=== PATIENT | female | born 1950 | race Caucasian/White ===

== ENCOUNTER → 2017-01-27 | Outpatient (CLI) | payer OTHER ==
[~2017-01-27] MED LIST: 50+ COMPANION0.4 MG PO; ACCUPRIL10 MG PO; ACCUPRIL40 MG PO; ALBUTEROL SULF8.5 GM IH; ALLERGY RELIEF25 MG PO; ASPIR-TRIN325 M1 PO; ASPIRIN E.C.81 M1 PO; B12 PO; BENZONATATE200 MG PO; BIOTIN1000 MICRO PO; BODY PO; BUDEPRION SR150 MG PO; CLARITIN D PO; CLOPIDOGREL75 MG PO; Cipro PO; Combivent IH; DAILY VALUE1 EACH PO; FLEXERIL10 MG PO; GLIPIZIDE XL10 M1 PO; GLUCOTROL XL10 MG PO; Glucotrol PO; HAIR PO; IMDUR30 MG PO; IMDUR60 MG PO; KEFLEX500 MG PO; KEPPRA500 MG PO; KEPPRA750 MG PO; LEVETIRACETAM750 MG PO; LISINOPRIL10 MG PO; LOPRESSOR25 MG PO; LORTAB 5-500 T1 EACH PO; MELATONIN1 MG PO; METOPROLOL SUCC25 MG PO; METOPROLOL TART25 MG PO; NAPROXEN500 MG PO; NEURONTIN300 MG PO; NEURONTIN600 MG PO; NEXIUM40 MG PO; NITROSTAT0.4 MG SL; NOVOLIN N100 UNITS/ SC; Nitrostat,NitroQuick SL; OMEPRAZOLE20 MG PO; PEN-VEE K,VEET500 MG PO; PERCOCET 5/31 TABLET PO; PLAVIX75 MG PO; PRAVASTATIN SOD40 MG PO; PRILOSEC20 MG PO; PROAIR HFA8.5 GM IH; PROTONIX40 MG PO; Proventil,Ventolin H IH; RANITIDINE HCL150 M1 PO; REGLAN5 MG PO; RELIE EAC PO; SALINE NASAL SP45 ML BOTH NARES; SINGULAIR10 MG PO; TOPROL XL25 MG PO; TYLENOL EXTRA500 MG PO; Toprol XL PO; Tylenol Regular Stre PO; VEETIDS 500500 MG PO; VENTOLIN HFA18 GM IH; VITAMIN B-121000 MC1 SL; Vitamin B-12 SL; WELLBUTRIN PO; WELLBUTRIN SR150 MG PO; WELLBUTRIN XL150 MG PO; Wellbutrin SR PO; ZANTAC150 MG PO; ZANTAC75 MG PO; ZESTRIL10 MG PO; ZITHROMAX Z-PA250 MG PO; ZOCOR20 MG PO; ZOLOFT100 MG PO; ZOLOFT50 MG PO; Zocor PO; [UNRECOGNIZED DRUG - OTHER]; [UNRECOGNIZED DRUG - OTHER] PO
== END | disposition home or self-care (01) ==
LOC: RAD 13:35
DX: R22.0 Localized swelling, mass and lump, head (principal)
CPT/HCPCS: 70470

== ENCOUNTER 2017-10-25 09:16 | Emergency (ER) | payer OTHER ==
[~2017-10-25] VITALS: Ht 157.5 cm; Wt 89.5 kg
[2017-10-25] MEDS ORDERED: PEPCID20 MG PO (13:38)
[2017-10-25 13:58] VITALS: BP 182/90
== END 2017-10-25 13:59 | disposition home or self-care (01) ==
LOC: EME 09:16
DX: K21.9 Gastro-esophageal reflux disease without esophagitis (principal); R05 Cough; I10 Essential (primary) hypertension; E11.9 Type 2 diabetes mellitus without complications; Z79.4 Long term (current) use of insulin; Z85.43 Personal history of malignant neoplasm of ovary; Z90.711 Acquired absence of uterus with remaining cervical stump; Z86.73 Personal history of transient ischemic attack (TIA), and cerebral infarction without residual deficits
CPT/HCPCS: 71046; 87081; 87651 90; 99281; 99283

== ENCOUNTER → 2017-12-16 | Outpatient (CLI) | payer OTHER ==
[~2017-12-16] MED LIST changes: +PEPCID20 MG PO
== END | disposition home or self-care (01) ==
LOC: EEG 13:00
DX: G40.001 Localization-related (focal) (partial) idiopathic epilepsy and epileptic syndromes with seizures of localized onset, not intractable, with status epilepticus (principal)
CPT/HCPCS: 95954